=== PATIENT | female | born 1955 | race Caucasian/White ===

== ENCOUNTER 2017-01-16 10:50 | Day surgery (SDC) | payer MEDICARE, MEDICAID ==
[2017-01-09 13:08] VITALS: BMI 28.9
[2017-01-16] MEDS ORDERED: Bupivacaine/Epinephrine 0.25% 30 ML VIAL ONE (11:44)
[2017-01-16] MEDS ORDERED: CEFAZOLIN/Water 2 GM/20 ML SYRINGE ONE (11:49)
[2017-01-16] MEDS ORDERED: Midazolam HCl 2 mg/2 ml Vial ONE (12:05)
[2017-01-16] MEDS ORDERED: Fentanyl 100 MCG/2 ML VIAL ONE ×3 (12:09→14:04)
[2017-01-16] MEDS ORDERED: Ketorolac Tromethamine 30 MG/ML VIAL ONE (13:59)
[2017-01-16] MEDS ORDERED: Propofol 200 MG/20 ML VIAL ONE (14:21)
[2017-01-16] MEDS ORDERED: Glycopyrrolate 0.2 MG/ML 5 ML SYRINGE ONE (14:21)
[2017-01-16] MEDS ORDERED: PHENYLEPHRINE-NS 100 MCG/ML 10 ML SYRINGE ONE (14:21)
[2017-01-16] MEDS ORDERED: Dexamethasone 20 MG/5 ML VIAL ONE (14:21)
[2017-01-16] MEDS ORDERED: Ondansetron HCl/PF 4 MG/2 ML Vial ONE (14:21)
[2017-01-16] MEDS ORDERED: Promethazine HCl 25 MG/ML VIAL ONE (15:23)
--- NOTE | 2017-01-16 16:25 | PDOC.OP ---
Operative Note - Operative Note Operative Note: PROCEDURE: Laparoscopic cholecystectomy SURGEON: Asya Real M.D. DATE OF PROCEDURE: 01/16/2017 PREOPERATIVE DIAGNOSIS: Cholelithiasis and cholecystitis POSTOPERATIVE DIAGNOSIS: Cholelithiasis and cholecystitis HISTORY: Patient is a 62-year-old woman with chronic right sided postprandial pain. Gallbladder ultrasound showed possible sludge but no stones but HIDA scan showed a very low ejection fraction of 10%. Recommendation was made to proceed with laparoscopic cholecystectomy for symptomatic relief. FINDINGS: White walled chronically distended gallbladder with chronic-appearing omental adhesions. Omental adhesions to the lower midline but none in the area of the umbilical her upper abdominal trochars. PROCEDURE IN DETAIL: After informed consent was obtained and appropriate preoperative antibiotics were administered, the patient was taken to the operating room and placed in the supine position and general endotracheal anesthesia was administered. The stomach was decompressed with an OG tube and the abdomen was prepped and draped in standard sterile fashion. Local anesthesia was infused to the skin and subcutaneous tissues at the umbilical level. A transverse skin incision was made. The fascia was elevated and a Veress needle was placed into the abdominal cavity without difficulty. Opening pressure was less than 5 and carbon dioxide gas easily insufflated to an intra- abdominal pressure of 15, which the patient tolerated well. The Veress needle was withdrawn and a [place] port advanced under direct vision. The abdominal cavity was carefully examined. There was no evidence of Veress needle or of trocar injury. Local anesthesia was infused to the skin and subcutaneous tissues at the epigastric, right upper quadrant, and right lateral abdominal sites and trocars were placed under direct vision of the laparoscope. The fundus of the gallbladder was grasped and retracted superiorly. Omental adhesions were stripped inferiorly through the avascular plane exposing the infundibulum. The infundibulum was grasped and retracted laterally. The serosa was stripped inferiorly at the level of the neck of the gallbladder exposing the cystic duct and artery which were traced clearly to their insertion in the gallbladder. Critical view of safety was obtained and the cystic duct and artery were clipped and divided between clips. The gallbladder was then dissected free of the gallbladder bed using hook electrocautery. Prior to complete removal of the gallbladder from the gallbladder bed, the area of the cystic duct and artery stumps was examined. The clips were in good position completely across these structures and there was no bleeding and no leakage of bile. The gallbladder was then placed into an EndoCatch bag and drawn out through the epigastric incision. The epigastric trocar was replaced and the operative site easily irrigated to clear. There was no significant bleeding or spillage of bile. The area of the umbilical trocar was then examined. There were fairly extensive omental adhesions inferior to the umbilicus but none in the upper abdomen. There was a small amount of gas insufflated into the omentum but this was elevated and examined and was away from the area of the colon. The epigastric trocar was removed and the fascia closed under direct laparoscopic vision with a 0 Vicryl suture on a GraNee needle in a [id number] manner with excellent technical result. The right upper quadrant and right lateral abdominal trocars were removed and hemostasis verified. Carbon dioxide gas was allowed to desufflate through the umbilical trocar which was then removed. The skin incisions were closed with 4-0 subcuticular Monocryl sutures and Dermabond dressings were placed. The patient was extubated and taken to the recovery room in good condition. There were no complications. ESTIMATED BLOOD LOSS: Minimal. SPECIMEN : Gallbladder and contents.
== END 2017-01-16 16:44 | disposition home or self-care (01) ==
LOC: SDC 10:50
PROVIDERS: ATTEND Surgery
PROC: 0FT44ZZ Resection of Gallbladder, Percutaneous Endoscopic Approach (ICD-10-PCS; principal; 2017-01-16)
DX: K81.1 Chronic cholecystitis (principal); K82.8 Other specified diseases of gallbladder; Z88.5 Allergy status to narcotic agent; Z88.8 Allergy status to other drugs, medicaments and biological substances; Z90.2 Acquired absence of lung [part of]; Z98.1 Arthrodesis status; Z98.890 Other specified postprocedural states
CPT/HCPCS: 88304; 96374; J1100; J1885; J2250; J2405; J2550; J2704; J3010

== ENCOUNTER 2017-04-13 09:49 | Outpatient (CLI) | payer MEDICARE, MEDICAID ==
[2017-04-13] MEDS ORDERED: Iopamidol 370 76% 100 ML VIAL ONE (11:50)
== END 2017-04-13 09:50 | disposition home or self-care (01) ==
LOC: BICCT 09:49
PROVIDERS: ATTEND Internal Medicine Gastroenterology
DX: R10.84 Generalized abdominal pain (principal); Z85.038 Personal history of other malignant neoplasm of large intestine; Z98.890 Other specified postprocedural states
CPT/HCPCS: 74178